=== PATIENT | female | born 1945 | race Caucasian/White ===

== ENCOUNTER 2020-09-19 14:40 | Emergency (ER) | payer MEDICARE ==
[~2020-09-19] VITALS: Ht 152.4 cm; Wt 75.7 kg
--- NOTE | 2020-09-19 17:03 | NUR ---
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
--- NOTE | 2020-09-19 17:52 | NUR ---
PT TO ROOM 27 W/ C/O MGLF AFTER PT WAS WALKING AROUND THE BLOCK AND AN UNLEASHED DOG CAME AND SCARED PT AND SHE FELL OFF THE SIDEWALK ONTO THE CONCRETE AND PER WITNESS PT HAD +LOC FOR 30 SEC. PT DENIES BEING ON BLOOD THINNERS. AOX4. NEURO INTACT. PT RESTING ON GURNEY. NADN. VSS.
[2020-09-19] MEDS ORDERED: DIPH,PERTUSS(ACELL),TET VAC/PF 0.5 ML IM-VACC ONE ×2 (18:00→18:16)
[2020-09-19] MEDS ORDERED: LIDOCAINE 1%, 10ML INFIL ONE (18:00)
[2020-09-19] MEDS ORDERED: LIDOCAINE-MPF 1%, 5ML ONE (18:16)
[2020-09-19 19:24] VITALS: BP 145/66
--- NOTE | 2020-09-19 19:25 | NUR ---
PT RESTING ON GURNEY. NADN. GARCIA.
[2020-09-19] MEDS ORDERED: NEOSPORIN OINT. PKT 1 PACKET ONE (20:03)
== END 2020-09-19 20:13 | disposition home or self-care (01) ==
LOC: ED 18:57
DX: S01.112A Laceration without foreign body of left eyelid and periocular area, initial encounter (principal); R55 Syncope and collapse; E11.9 Type 2 diabetes mellitus without complications; W01.0XXA Fall on same level from slipping, tripping and stumbling without subsequent striking against object, initial encounter; Y93.89 Activity, other specified; Y92.830 Public park as the place of occurrence of the external cause; Y99.8 Other external cause status
CPT/HCPCS: 12051; 70450; 70486; 82962; 90471; 90715; 99285